=== PATIENT | male | born 1975 ===

== ENCOUNTER 2019-02-04 23:39 | Emergency (ER) | payer SELFPAY ==
[2019-02-04 23:47] VITALS: BP 107/75; PULSE 64; RESP 16; TEMP 97.7; O2SAT 99
[2019-02-05] MEDS ORDERED: Tdap Vaccine 0.5 ml Vial (10-64 yrs) IM ONE (00:29)
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
[2019-02-05] MEDS ORDERED: Povidone Iodine Oint 10% Foilpak UD ONE (00:41)
== END 2019-02-05 00:51 | disposition home or self-care (01) ==
LOC: H.ER 23:39
DX: S40.812A Abrasion of left upper arm, initial encounter (principal); S40.811A Abrasion of right upper arm, initial encounter; Y09 Assault by unspecified means; Z23 Encounter for immunization